=== PATIENT | male | born 1930 | race Caucasian/White ===

== ENCOUNTER 2016-07-23 14:07 | Inpatient (IN) | payer MEDICARE, BC ==
[~2016-07-23] VITALS: Ht 180.3 cm; Wt 81.4 kg
[~2016-07-23 14:07] MED LIST: APIX5 PO; AVOD0.5C PO; CEPH500C3 PO; CETI10 PO; LEXA10TA PO; METO50TA PO; PRIL40CA PO; TAMS0.4C67 PO; TYLE3 PO
[2016-07-23 14:10] VITALS: BP 112/62; PULSE 122; RESP 17; TEMP 97.7; O2SAT 94
[2016-07-23 14:54] VITALS: BP 124/73; PULSE 121; RESP 18; O2SAT 99
--- NOTE | 2016-07-23 15:18 | PD ---
HPI Chief Complaint: Cardiac Complaint Time Seen by Provider: 15:13 Travel History International Travel<30 days: No Contact w/Intl Traveler<30days: No Traveled to known affect area: No History of Present Illness HPI 85-year-old male that presents to the ED for evaluation of abnormal EKG. Per patient he went to see his doctor Dr. Aguilar the packer dried beef for evaluation of abnormal EKG. Patient has a history of atrial flutter and has a pacemaker. Patient apparently for the past 3 weeks has been having shortness of breath and weakness. Weakness with exertion. Denies any chest pain. No dizziness. No lightheadedness. Per patient he went to his office today and he did an EKG that showed atrial follow with a heart rate in the 120s. Patient also had interrogation of his pacemaker which show atrial flutter with RVR in the 120s. He was told to come here immediately. Patient already takes in liquids. Patient denies any other symptoms other than generalized weakness. Per patient she's had a cough/allergy for the past 2 weeks for which she takes Zyrtec but nothing else. He denies any bowel movement or urinary issue. He denies any fevers with this to have some chills and sweats. Patient states that he has congestion and runny nose. He denies any other medical problem at this time. PFSH Past Medical History Hx Anticoagulant Therapy: Yes Arthritis: Yes Heart Rhythm Problems: Yes (PACEMAKER) Cancer: Yes (ESOPHAGUS AND COLON) Cardiovascular Problems: Yes Chemotherapy: Yes Chest Pain: Yes Congestive Heart Failure: No Diminished Hearing: Yes ([place]) Endocrine: No Gastrointestinal Disorders: No GERD: No Genitourinary: No Hiatal Hernia: No Hypertension: Yes Immune Disorder: No Implanted Vascular Access Dvce: Yes Musculoskeletal: Yes Neurologic: No Psychiatric: No Respiratory: No Ulcer: No Past Surgical History Abdominal Surgery: Yes (CANCER ESOPHAGUS) Appendectomy: Yes Cardiac Surgery: Yes (PACEMAKER) Cholecystectomy: Yes Ear Surgery: No Endocrine Surgery: No Eye Surgery: No Genitourinary Surgery: No Oral Surgery: No Pacemaker: Yes ([facility] [place]) Thoracic Surgery: No Tonsillectomy: Yes Other Surgery: Yes (ESOPHAGUS REMOVED AND A PORTION OF THE COLON REMOVED) Social History Alcohol Use: No Tobacco Use: No (FORMER) Substance Use: No Allergies-Medications (Allergen,Severity, Reaction): Coded Allergies: No Known Allergies (Verified , 04/04/15) Reported Meds & Prescriptions Reported Meds & Active Scripts Active Reported Dutasteride 0.5 Mg Cap 0.5 Mg PO DAILY Zyrtec Allergy (Cetirizine HCl) 10 Mg Tab 10 Mg PO DAILY Eliquis (Apixaban) 5 Mg Tab 5 Mg PO BID Metoprolol Tartrate 25 Mg Tab 25 Mg PO BID Lexapro (Escitalopram Oxalate) 10 Mg Tab 10 Mg PO HS Omeprazole 40 Mg Cap 40 Mg PO DAILY Tamsulosin (Tamsulosin HCl) 0.4 Mg Cap 0.4 Mg PO BID Review of Systems Except as stated in HPI: all other systems reviewed are Neg Physical Exam Narrative GENERAL: SKIN: Warm and dry. HEAD: Atraumatic. Normocephalic. EYES: Pupils equal and round 4 mm reactive to light and accommodation. No scleral icterus. No injection or drainage. ENT: No nasal bleeding or discharge. Mucous membranes pink and moist. Tongue is midline. No uvula deviation. NECK: Trachea midline. No JVD. CARDIOVASCULAR: Tachycardic rate and rhythm. Irregular. No murmurs S3 or S4. RESPIRATORY: No accessory muscle use. Clear to auscultation. Breath sounds equal bilaterally. GASTROINTESTINAL: Abdomen soft, non-tender, nondistended. Hepatic and splenic margins not palpable. MUSCULOSKELETAL: Extremities without clubbing, cyanosis, or edema. No obvious deformities. Full range of motion of the upper and lower extremities bilaterally. 2+ pulses bilaterally. NEUROLOGICAL: Awake and alert. No obvious cranial nerve deficits. Motor grossly within normal limits. Five out of 5 muscle strength in the arms and legs. Normal speech. PSYCHIATRIC: Appropriate mood and affect; insight and judgment normal. Data Data Last Documented VS Vital Signs Date Time Temp Pulse Resp B/P Pulse Ox O2 Delivery O2 Flow Rate FiO2 07/23/16 14:54 121 18 124/73 99 Room Air 07/23/16 14:10 97.7 Orders Electrocardiogram (07/23/16 14:23) Complete Blood Count With Diff (07/23/16 14:23) Basic Metabolic Panel (Bmp) (07/23/16 14:23) Ckmb (Isoenzyme) Profile (07/23/16 14:23) Troponin I (07/23/16 14:23) Chest, Single Ap (07/23/16 14:23) Iv Access Insert/Monitor (07/23/16 14:58) Vital Signs (Adult) Q15MX4,Q4H (07/23/16 15:19) ^ Primary Care Md / Telemetry (07/23/16 15:19) Diltiazem Inj (Cardizem Inj) (07/23/16 15:30) ^ Primary Care Md / Telemetry (07/23/16 15:27) Cardiac Rhythm MERNA.Q8H (07/23/16 15:27) ^ Notify Dr: Other (07/23/16 15:27) Diltiazem Inj (Cardizem Inj) (07/23/16 15:30) Prothrombin Time / Inr (Pt) (07/23/16 16:52) Act Partial Throm Time (Ptt) (07/23/16 16:52) Admit Order (Ed Use Only) (07/23/16 17:20) Electrocardiogram (07/23/16 ) Labs Laboratory Tests Test 07/23/16 15:13 White Blood Count 6.0 TH/MM3 Red Blood Count 4.36 MIL/MM3 Hemoglobin 13.1 GM/DL Hematocrit 39.7 % Mean Corpuscular Volume 91.0 FL Mean Corpuscular Hemoglobin 29.9 PG Mean Corpuscular Hemoglobin 32.9 % Concent Red Cell Distribution Width 13.5 % Platelet Count 142 TH/MM3 Mean Platelet Volume 10.9 FL Neutrophils (%) (Auto) 68.5 % Lymphocytes (%) (Auto) 17.8 % Monocytes (%) (Auto) 9.7 % Eosinophils (%) (Auto) 3.4 % Basophils (%) (Auto) 0.6 % Neutrophils # (Auto) 4.1 TH/MM3 Lymphocytes # (Auto) 1.1 TH/MM3 Monocytes # (Auto) 0.6 TH/MM3 Eosinophils # (Auto) 0.2 TH/MM3 Basophils # (Auto) 0.0 TH/MM3 CBC Comment DIFF FINAL Differential Comment Sodium Level 139 MEQ/L Potassium Level 4.0 MEQ/L Chloride Level 107 MEQ/L Carbon Dioxide Level 25.0 MEQ/L Anion Gap 7 MEQ/L Blood Urea Nitrogen 14 MG/DL Creatinine 1.64 MG/DL Estimat Glomerular Filtration 40 ML/MIN Rate Random Glucose 95 MG/DL Calcium Level 8.3 MG/DL Total Creatine Kinase 85 U/L Troponin I LESS THAN 0.02 NG/ML MDM Medical Decision Making Medical Screen Exam Complete: Yes Emergency Medical Condition: Yes Medical Record Reviewed: Yes Interpretation(s) EKG shows atrial flutter with narrow complex tachycardia. read by me and attending. CBC & BMP Diagram 07/23/16 15:13 troponin and CKMB negative Last Impressions Chest X-Ray 07/23/16 1423 Signed Impressions: Service Date/Time: July 14:28 - CONCLUSION: 1. Interval development of a 3.7 x 2.2 cm soft tissue density laterally in the right perihilar distribution. Findings are nonspecific and could represent a mass lesion or fluid in the fissure. CT of the chest could be performed for further characterization. 2. Interval development of some pleural thickening laterally in the right base and some diaphragmatic calcifications also in the right hemithorax. Cong Pressley MD Differential Diagnosis Atrial flutter versus edger fibrillation versus palpitations versus generalized weakness versus COPD versus ACS Narrative Course 85-year-old male that presents to the ED for evaluation of atrial flutter. Patient was properly examined and was found to have signs and symptoms consistent what appears to be atrial flutter with RVR. EKG here showed the same. Patient comes here with paperwork from Dr. Claros's office with score low grade the story. Dr. Claros wants us to call him back. A call was placed to him. Labs and imaging ordered. Case was discussed with Dr Claros and recommends admission to medicine and he will assess to whether do medical management or surgery. Labs and imaging were essentially unremarkable other than for A. fib as well as possible mass to the right lung. Patient's creatinine is too high to do CT with contrast. [facility] Case discussed with Dr Trent who agrees to admission. Diagnosis Primary Impression: Atrial flutter with rapid ventricular response Admitting Information Admitting Physician Requests: Observation Dany Rojas Jul 23, 2016 15:18
[2016-07-23] MEDS ORDERED: DUTA1CAP2 PO (15:24)
[2016-07-23] MEDS ORDERED: CETI1TAB39 PO (15:24)
[2016-07-23] MEDS ORDERED: METO25TA3 PO (15:24)
[2016-07-23] MEDS ORDERED: TAMS0.4C4 PO (15:24)
[2016-07-23] MEDS ORDERED: APIX5TAB PO (15:24)
[2016-07-23] MEDS ORDERED: OMEP40CA2 PO (15:24)
[2016-07-23] MEDS ORDERED: LEXA10TA PO (15:24)
--- NOTE | 2016-07-23 15:24 | RADRPT ---
EXAM DATE/TIME: 07/23/2016 14:28 [facility] COMPARISON: CHEST SINGLE AP, March 10, 2015, 17:03. INDICATIONS : Patient feels very weak with elevated heart rate. MEDICAL HISTORY : Hypertension. SURGICAL HISTORY : Pacemaker. Cholecystectomy. ENCOUNTER: Initial ACUITY: 1 day PAIN SCORE: 0/10 LOCATION: Bilateral chest FINDINGS: A single view of the chest demonstrates an oblong soft tissue density laterally in the right perihila r distribution measuring 3.7 x 2.2 cm in diameter which was not present previously. There is also roxie e pleural thickening laterally in the right hemithorax with diaphragmatic base calcifications also on the right. Left lung is grossly clear but partially obscured by the pacer control unit. Pacer wires are intact. Heart size is borderline normal compensated. Osseous structures are intact. CONCLUSION: 1. Interval development of a 3.7 x 2.2 cm soft tissue density laterally in the right perihilar distri bution. Findings are nonspecific and could represent a mass lesion or fluid in the fissure. CT of the chest could be performed for further characterization. 2. Interval development of some pleural thickening laterally in the right base and some diaphragmatic calcifications also in the right hemithorax. Cong Preslsey MD on July 23, 2016 at 15:18 Board Certified Radiologist. This report was verified electronically.
[2016-07-23] MEDS ORDERED: DILTIAZEM HCL 25 MG/5 ML VIAL IVP ONE (15:30)
[2016-07-23] MEDS ORDERED: DILTIAZEM INJ 125 MG in SODIUM CHLORIDE 0.9% INJ 100 ML IV SCH ×2 (15:30→17:45)
[2016-07-23 15:46] LABS: AUTOMATED NEUTROPHIL # 4.1 TH/MM3 (1.8-7.7); BASOPHIL % 0.6 % (0.0-2.0); EOSINOPHIL # 0.2 TH/MM3 (0-0.4); EOSINOPHIL % 3.4 % (0.0-4.0); HEMATOCRIT 39.7 % (39.0-51.0); HEMO FLAGS DIFF FINAL; LYMPH % 17.8 % (9.0-44.0); LYMPHOCYTE # 1.1 TH/MM3 (1.0-4.8); MEAN CORPUSCULAR HEMOGLOBIN 29.9 PG (27.0-34.0); MEAN CORPUSCULAR HGB CONC 32.9 % (32.0-36.0); MONO % 9.7 % (0.0-8.0); NEUT % 68.5 % (16.0-70.0); PLATELET COUNT 142 TH/MM3 (150-450); RED BLOOD COUNT 4.36 MIL/MM3 (4.50-5.90); RED CELL DISTRIBUTION WIDTH 13.5 % (11.6-17.2)
[2016-07-23 17:03] LABS: ANION GAP 7 MEQ/L (5-15); BLOOD UREA NITROGEN 14 MG/DL (7-18); CHLORIDE 107 MEQ/L (98-107); GLOMERULAR FILTRATION RATE 40 ML/MIN (>89); SODIUM (NA) 139 MEQ/L (136-145)
[2016-07-23 17:10] LABS: CREATINE KINASE 85 U/L (39-308)
[2016-07-23 17:38] VITALS: BP 104/67; PULSE 95; RESP 18; O2SAT 100
--- NOTE | 2016-07-23 17:47 | HHI.PR ---
Objective Objective Results - Vital Signs Date Time Temp Pulse Resp B/P Pulse Ox O2 Delivery O2 Flow Rate FiO2 07/23/16 17:38 95 18 104/67 100 Room Air 07/23/16 14:54 121 18 124/73 99 Room Air 07/23/16 14:10 97.7 122 17 112/62 94 Result Diagram: 07/23/16 1513 07/23/16 1513 Other Results Laboratory Tests Test 07/23/16 15:13 White Blood Count 6.0 Red Blood Count 4.36 Hemoglobin 13.1 Hematocrit 39.7 Mean Corpuscular Volume 91.0 Mean Corpuscular Hemoglobin 29.9 Mean Corpuscular Hemoglobin 32.9 Concent Red Cell Distribution Width 13.5 Platelet Count 142 Mean Platelet Volume 10.9 Neutrophils (%) (Auto) 68.5 Lymphocytes (%) (Auto) 17.8 Monocytes (%) (Auto) 9.7 Eosinophils (%) (Auto) 3.4 Basophils (%) (Auto) 0.6 Neutrophils # (Auto) 4.1 Lymphocytes # (Auto) 1.1 Monocytes # (Auto) 0.6 Eosinophils # (Auto) 0.2 Basophils # (Auto) 0.0 CBC Comment DIFF FINAL Differential Comment Sodium Level 139 Potassium Level 4.0 Chloride Level 107 Carbon Dioxide Level 25.0 Anion Gap 7 Blood Urea Nitrogen 14 Creatinine 1.64 Estimat Glomerular Filtration 40 Rate Random Glucose 95 Calcium Level 8.3 Total Creatine Kinase 85 Troponin I LESS THAN 0.02 Physical Exam Physical Exam PT IS SEEN & EXAMINED D/W PT & HIS & DAUGHTER AT BEDSIDE D/W SEE JOVEL a FIB W RVR DIZZINESS/ AGUILAR LUNG MASS SEE ORDERS SEE H&P BY SEE WEBSTER F/U Brenda Trent MD Jul 23, 2016 17:47
[2016-07-23] MEDS: SODIUM CHLOR 0.9% 1000 ML INJ 1,000 ML IV SCH ×2 (18:15→20:45)
--- NOTE | 2016-07-23 18:24 | HHI.HP ---
[facility] Aron Mccray MD Admission Diagnosis atrial flutter with RVR Diagnoses: (1) Atrial flutter with rapid ventricular response Diagnosis: Principal (2) Dizziness Diagnosis: Principal (3) Lung mass Diagnosis: Secondary (4) Syncope and collapse Diagnosis: Principal (5) Shortness of breath Diagnosis: Principal Chief Complaint: generalized weakness and dizziness X 3 weeks. Travel History International Travel<30 Days: No Contact w/Intl Traveler <30 Da: No Traveled to Known Affected Are: No History of Present Illness This is an 85-year-old white male who came into the emergency room from his cardiology office with an abnormal EKG. The past 3 weeks patient has had symptoms of shortness of breath and weakness especially with activity or exertion. Patient denies any chest pain, but does have bouts of dizziness off and on. Patient currently has a pacemaker and has had episodes of atrial fib in the past. He should also had his pacemaker checked which showed slow atrial flutter heart rate in the 120s. She was told to come to the emergency room for further evaluation. Patient denies any fever, no cough, no chest pain, no constipation. She does have bouts of diarrhea which appears to be chronic according to his . Most of the patient's history is given per the and daughter due to the patient's hard of hearing. Patient is engaged with the conversation with his eye contact. She does note seasonal allergies and has been taking Zyrtec for the past few weeks, but other than that no new meds. Review of Systems ROS Limitations: Hearing Impaired, Other (Severe [place]. Limited ROS) Past Family Social History Past Medical History Heart disease Cancer of the esophagus Colon cancer history of anticoagulant therapy Atrial fibrillation Hard of hearing Hypertension Past Surgical History Pacemaker insertion abdominal surgery appendectomy Cholecystectomy Esophagus removed and a portion of the colon removed Reported Medications See med reconcilation sheet. Active Medications Apixaban (Eliquis) 5 mg BID PO; Start 07/23/16 at 21:00; Status UNV Cetirizine HCl (ZyrTEC) 10 mg DAILY PO; Start 07/24/16 at 09:00; Status UNV Diltiazem HCl 125 mg/Sodium Chloride 125 ml @ 0 mls/hr TITRATE IV; Start at 17:45; Status UNV Diltiazem HCl 15 mg 15 mg ONCE ONCE IVP Last administered on 07/23/16 15:31; Admin Dose 15 MG; Start 07/23/16 at 15:30; Stop 07/23/16 at 15:36; Status DC Diltiazem HCl/ Sodium Chloride (Cardizem Inj/NS Inj) 125 ml @ 0 mls/hr TITRATE IV Last administered on 07/23/16 17:37; Admin Dose 0 MLS/HR; Start 07/23/16 at 15:30 Escitalopram Oxalate (Lexapro) 10 mg HS PO; Start 07/23/16 at 21:00; Status UNV Metoprolol Tartrate (Lopressor) 25 mg BID PO; Start 07/23/16 at 21:00; Status UNV Non-Formulary Medication 0.5 mg 0.5 mg DAILY PO; Start 07/24/16 at 09:00; Status UNV Pantoprazole Sodium (Protonix) 40 mg DAILY PO; Start 07/24/16 at 09:00; Status UNV Sodium Chloride (NS 1000 ml Inj) 1,000 ml @ 100 mls/hr Q10H IV; Start 07/23/16 at 17:45; Status UNV Tamsulosin HCl (Flomax) 0.4 mg BID PO; Start 07/23/16 at 21:00; Status UNV Allergies: Coded Allergies: No Known Allergies (Verified , 04/04/15) Active Ordered Medications Active Medications Apixaban (Eliquis) 5 mg BID PO; Start 07/23/16 at 21:00; Status UNV Cetirizine HCl (ZyrTEC) 10 mg DAILY PO; Start 07/24/16 at 09:00; Status UNV Diltiazem HCl 125 mg/Sodium Chloride 125 ml @ 0 mls/hr TITRATE IV; Start at 17:45; Status UNV Diltiazem HCl 15 mg 15 mg ONCE ONCE IVP Last administered on 07/23/16 15:31; Admin Dose 15 MG; Start 07/23/16 at 15:30; Stop 07/23/16 at 15:36; Status DC Diltiazem HCl/ Sodium Chloride (Cardizem Inj/NS Inj) 125 ml @ 0 mls/hr TITRATE IV Last administered on 07/23/16 17:37; Admin Dose 0 MLS/HR; Start 07/23/16 at 15:30 Escitalopram Oxalate (Lexapro) 10 mg HS PO; Start 07/23/16 at 21:00; Status UNV Metoprolol Tartrate (Lopressor) 25 mg BID PO; Start 07/23/16 at 21:00; Status UNV Non-Formulary Medication 0.5 mg 0.5 mg DAILY PO; Start 07/24/16 at 09:00; Status UNV Pantoprazole Sodium (Protonix) 40 mg DAILY PO; Start 07/24/16 at 09:00; Status UNV Sodium Chloride (NS 1000 ml Inj) 1,000 ml @ 100 mls/hr Q10H IV; Start 07/23/16 at 17:45; Status UNV Tamsulosin HCl (Flomax) 0.4 mg BID PO; Start 07/23/16 at 21:00; Status UNV Family History Mother from pneumonia father from dementia and its complications Social History Patient is currently lives at home with his . Daughter is here at the hospital and assist as warranted Tobacco use greater than 60 years ago No no alcohol use and no illicit drugs Physical Exam Vital Signs Vital Signs Date Time Temp Pulse Resp B/P Pulse Ox O2 Delivery O2 Flow Rate FiO2 07/23/16 17:38 95 18 104/67 100 Room Air 07/23/16 14:54 121 18 124/73 99 Room Air 07/23/16 14:10 97.7 122 17 112/62 94 Physical Exam GENERAL: This is a well-nourished, well-developed patient, in no apparent distress at rest. SKIN: No rashes, ecchymoses or lesions. Cool and dry. HEAD: Atraumatic. Normocephalic. No temporal or scalp tenderness. EYES: Pupils 2mm, equal round and reactive. Extraocular motions intact. No scleral icterus. No injection or drainage. ENT: Nose without bleeding, purulent drainage or septal hematoma. Throat without erythema, tonsillar hypertrophy or exudate. Uvula midline. Airway patent. NECK: Trachea midline. No JVD or lymphadenopathy. Supple, nontender. CARDIOVASCULAR: Regular rate and rhythm without murmurs, gallops, or rubs. Heart sounds distant. No pedal edema RESPIRATORY: Clear to auscultation. Breath sounds equal bilaterally. No wheezes , rales, or rhonchi. GASTROINTESTINAL: Abdomen soft, non-tender, nondistended. No hepato-splenomegaly , or palpable masses. No guarding. MUSCULOSKELETAL: Extremities without clubbing, cyanosis, or edema. No joint tenderness, effusion, or edema noted. No calf tenderness. NEUROLOGICAL: Awake and alert. Motor and sensory grossly within normal limits. Four out of 5 muscle strength in all muscle groups. Normal speech. Laboratory Laboratory Tests Test 07/23/16 15:13 White Blood Count 6.0 Red Blood Count 4.36 Hemoglobin 13.1 Hematocrit 39.7 Mean Corpuscular Volume 91.0 Mean Corpuscular Hemoglobin 29.9 Mean Corpuscular Hemoglobin 32.9 Concent Red Cell Distribution Width 13.5 Platelet Count 142 Mean Platelet Volume 10.9 Neutrophils (%) (Auto) 68.5 Lymphocytes (%) (Auto) 17.8 Monocytes (%) (Auto) 9.7 Eosinophils (%) (Auto) 3.4 Basophils (%) (Auto) 0.6 Neutrophils # (Auto) 4.1 Lymphocytes # (Auto) 1.1 Monocytes # (Auto) 0.6 Eosinophils # (Auto) 0.2 Basophils # (Auto) 0.0 CBC Comment DIFF FINAL Differential Comment Sodium Level 139 Potassium Level 4.0 Chloride Level 107 Carbon Dioxide Level 25.0 Anion Gap 7 Blood Urea Nitrogen 14 Creatinine 1.64 Estimat Glomerular Filtration 40 Rate Random Glucose 95 Calcium Level 8.3 Total Creatine Kinase 85 Troponin I LESS THAN 0.02 Result Diagram: 07/23/16 1513 07/23/16 1513 Imaging Last Impressions Chest X-Ray 07/23/16 1423 Signed Impressions: Service Date/Time: July 14:28 - CONCLUSION: 1. Interval development of a 3.7 x 2.2 cm soft tissue density laterally in the right perihilar distribution. Findings are nonspecific and could represent a mass lesion or fluid in the fissure. CT of the chest could be performed for further characterization. 2. Interval development of some pleural thickening laterally in the right base and some diaphragmatic calcifications also in the right hemithorax. Cong Pressley MD Septic Shock Reassessment Heart: Regular rate and rhythm Lungs: Clear Skin: Warm, Dry Peripheral Pulses: Bounding Right Radial Bounding Left Radial Bounding Right Popliteal Bounding Left Popliteal Bounding Right Dorsalis Pedis Bounding Left Dorsalis Pedis Bounding Right Posterior Tibial Bounding Left Posterior Tibial Capillary Refill: Brisk Assessment and Plan Problem List: (1) Atrial flutter with rapid ventricular response (2) Syncope and collapse (3) Shortness of breath (4) Lung mass (5) Dizziness Plan: Patient was given IV Cardizem and placed on a Cardizem drip to maintain blood pressure. Patient has threat monitoring analyst for observation of heart rate. Monitor vital signs which include blood pressure, fever, respiratory rate. DVT prophylaxis, patient is on Elaquis PUD prophylaxis with Protonix Monitor activities for safety precautions. Patient used to have someone with him or call for nurse before being up out of the bed. Reconcile medications Labs as warranted CT chest for follow-up of possible lung mass. Monitor any signs of symptoms of chest pain, shortness of breath, or dizziness. Document in chart and call for any issues Patient is Full code, full aggressive care per his and requests. Discussed With: Nurse, Family ( and daughter), Other (Dr. Trent, pt seen on his behalf) Rita Ross Jul 23, 2016 18:24
[2016-07-23 18:42] LABS: APTT (PATIENT) 29.4 SEC (24.3-30.1); INTERNATIONAL NORMALIZED RATIO 1.1 RATIO; PROTHROMBIN TIME - PATIENT 12.5 SEC (9.8-11.6)
[2016-07-23 20:00] VITALS: BP 103/62; PULSE 68; PULSE 69; RESP 18; TEMP 97.4; O2SAT 93
[2016-07-23] MEDS: METOPROLOL TARTRATE 25 MG TAB PO SCH (20:45)
[2016-07-23] MEDS: APIXABAN 5 MG TABLET PO SCH (20:45)
[2016-07-23] MEDS: ESCITALOPRAM OXALATE 10 MG TAB PO SCH (20:45)
[2016-07-23] MEDS: TAMSULOSIN HCL 0.4 MG CAP PO SCH (20:45)
[2016-07-23] MEDS ORDERED: CHLORHEXIDINE GLUCONATE 2 % 1 PACK (2 CLOTHS)(extra cloths) TOP PRN (21:00)
--- NOTE | 2016-07-23 21:27 | RADRPT ---
EXAM DATE/TIME: 07/23/2016 20:19 [facility] COMPARISON: CHEST SINGLE AP, July 23, 2016, 14:28. CT ABDOMEN & PELVIS W CONTRAST, May 06, 2011, 0:23. INDICATIONS : Lung mass seen on chest x-ray. RADIATION DOSE: 9.53 CTDIvol (mGy) MEDICAL HISTORY : Carcinoma, esophageal. SURGICAL HISTORY : Tonsillectomy. Pacemaker. ENCOUNTER: Initial ACUITY: 1 day PAIN SCALE: 0/10 LOCATION: chest TECHNIQUE: Volumetric scanning of the chest was performed. Using automated exposure control and adjustment of t he mA and/or kV according to patient size, radiation dose was kept as low as reasonably achievable to obtain optimal diagnostic quality images. FINDINGS: The opacity seen on today's chest x-ray is related to small amount of fluid in and lateral to the rig ht major fissure. A trace amount of pleural fluid is also seen on the left. There is no concerning pu lmonary mass. Multiple mediastinal lymph nodes measuring up to 1 cm in greatest short axis dimension are seen, especially the AP window region. Nothing clearly pathologic by size criteria. Scattered calcified granulomas are again seen. There is patchy calcified pleural plaquing on both josefa es, including the diaphragmatic surfaces. Patient has had previous esophagectomy and gastric pullup. There is debris within the intrathoracic p ortion of the stomach. No perceptible mass. Study only partly includes the upper abdomen. There are small stones of the upper poles of both kidne ys. What I can see of the renal stones appear to be nonobstructing. A 2.5 cm cyst is partly seen of t he left upper pole. CONCLUSION: 1. Small right and tiny left pleural effusions. Much of the right pleural effusion is loculated in th e major fissure which accounts for the opacity on today's chest x-ray. No concerning mass is demonstr ated. 2. Shotty mediastinal adenopathy, nonspecific but most likely benign. 3. Previous esophagectomy with gastric pullup without evidence of an acute complication or recurrence . 4. Coronary artery calcification. 5. Tiny stones partly seen of both kidneys and a left renal cyst. Home Alanis MD on July 23, 2016 at 21:21 Board Certified Radiologist. This report was verified electronically.
[2016-07-23 22:00] VITALS: PULSE 67
[2016-07-24] VITALS (12 sets, daily range): BP systolic 89–109; BP diastolic 60–71; PULSE 66–72; RESP 14–23; TEMP 97.2–98.6; O2SAT 96
[2016-07-24] MEDS: CHLORHEXIDINE GLUCONATE 2 % 1 PACK (2 CLOTHS)(taper/protocol) TOP SCH (03:24)
[2016-07-24 05:57] LABS: HEMATOCRIT 34.8 % (39.0-51.0); MEAN CELL VOLUME 89.2 FL (80.0-100.0); MEAN CORPUSCULAR HEMOGLOBIN 29.6 PG (27.0-34.0); MEAN CORPUSCULAR HGB CONC 33.2 % (32.0-36.0); PLATELET COUNT 133 TH/MM3 (150-450); RED CELL DISTRIBUTION WIDTH 13.6 % (11.6-17.2); REVIEW FLAG FINAL; WHITE BLOOD COUNT 4.1 TH/MM3 (4.0-11.0)
[2016-07-24 06:23] LABS: BICARBONATE 27.5 MEQ/L (21.0-32.0); POTASSIUM 4.5 MEQ/L (3.5-5.1)
[2016-07-24] MEDS: CETIRIZINE HCL 10 MG TAB PO SCH (08:59)
[2016-07-24] MEDS: FINASTERIDE 5 MG TAB PO SCH (08:59)
[2016-07-24] MEDS: APIXABAN 5 MG TABLET PO SCH ×2 (08:59→20:53)
[2016-07-24] MEDS: METOPROLOL TARTRATE 25 MG TAB PO SCH (08:59)
[2016-07-24] MEDS: TAMSULOSIN HCL 0.4 MG CAP PO SCH ×2 (08:59→20:53)
[2016-07-24] MEDS: PANTOPRAZOLE SOD 40 MG DELAYED RELEASE TAB PO SCH (08:59)
--- NOTE | 2016-07-24 14:11 | HHI.PR ---
Subjective Remarks No chest pain No SOB at rest. No dizziness No Headache Appetite good (Rita Ross) Objective Objective Results - Vital Signs Date Time Temp Pulse Resp B/P Pulse Ox O2 Delivery O2 Flow Rate FiO2 07/24/16 12:00 97.2 68 14 89/71 96 07/24/16 12:00 68 07/24/16 10:00 68 07/24/16 08:00 66 07/24/16 08:00 98.6 68 14 104/61 96 07/24/16 06:00 72 07/24/16 04:00 97.7 67 14 109/68 96 07/24/16 04:00 67 07/24/16 02:00 68 07/24/16 00:00 97.7 68 17 91/60 96 07/24/16 00:00 68 07/23/16 22:00 67 07/23/16 20:00 69 07/23/16 20:00 97.4 68 18 103/62 93 07/23/16 17:38 95 18 104/67 100 Room Air 07/23/16 14:54 121 18 124/73 99 Room Air 07/23/16 14:10 97.7 122 17 112/62 94 I/O 07/23/16 07/23/16 07/23/16 07/24/16 07/24/16 07/24/16 07:00 15:00 23:00 07:00 15:00 23:00 Intake Total 120 ml 900 ml Output Total 250 ml Balance 120 ml 650 ml Intake Oral 120 ml IV Total 900 ml Output Urine Total 250 ml # Voids 1 # Bowel Movements 1 (Rita Ross) Result Diagram: 07/24/16 0410 07/24/16 0410 Medications and IVs Active Medications Apixaban (Eliquis) 5 mg BID PO Last administered on 07/24/16 08:59; Admin Dose 5 MG; Start 07/23/16 at 21:00 Cetirizine HCl (ZyrTEC) 10 mg DAILY PO Last administered on 07/24/16 08:59; Admin Dose 10 MG; Start 07/24/16 at 09:00 Chlorhexidine Gluconate (Chlorhexidine 2% Cloth) 3 pack DAILY@04 TOP Last administered on 07/24/16 03:24; Admin Dose 3 PACK; Start 07/24/16 at 04:00; Stop 07/28/16 at 04:01 Chlorhexidine Gluconate (Chlorhexidine 2% Cloth) 3 pack UNSCH PRN TOP; Start at 21:00; Stop 07/28/16 at 20:50 Diltiazem HCl 125 mg/Sodium Chloride 125 ml @ 0 mls/hr TITRATE IV; Start at 17:45 Diltiazem HCl 15 mg 15 mg ONCE ONCE IVP Last administered on 07/23/16 15:31; Admin Dose 15 MG; Start 07/23/16 at 15:30; Stop 07/23/16 at 15:36; Status DC Diltiazem HCl/ Sodium Chloride (Cardizem Inj/NS Inj) 125 ml @ 0 mls/hr TITRATE IV Last administered on 07/23/16 17:37; Admin Dose 0 MLS/HR; Start 07/23/16 at 15:30; Stop 07/23/16 at 18:09; Status DC Escitalopram Oxalate (Lexapro) 10 mg HS PO Last administered on 07/23/16 20:45 ; Admin Dose 10 MG; Start 07/23/16 at 21:00 Finasteride 5 mg 5 mg DAILY PO Last administered on 07/24/16 08:59; Admin Dose 5 MG; Start 07/24/16 at 09:00 Metoprolol Tartrate (Lopressor) 25 mg BID PO Last administered on 07/24/16 08: 59; Admin Dose 25 MG; Start 07/23/16 at 21:00 Miscellaneous Information Patient in critical care unit? Ass... Q361D XX Last administered on 07/23/16 21:00; Admin Dose 1; Start 07/23/16 at 21:00 Pantoprazole Sodium (Protonix) 40 mg DAILY PO Last administered on 07/24/16 08: 59; Admin Dose 40 MG; Start 07/24/16 at 09:00 Sodium Chloride (NS 1000 ml Inj) 1,000 ml @ 100 mls/hr Q10H IV Last administered on 07/23/16 20:45; Admin Dose 100 MLS/HR; Start 07/23/16 at 18:15 Tamsulosin HCl (Flomax) 0.4 mg BID PO Last administered on 07/24/16t 08:59; Admin Dose 0.4 MG; Start 07/23/16 at 21:00 (Rita Ross) ROS General: Other (10 point ROS done. Negative assessment/unremarkable) (Rita Ross) Physical Exam Physical Exam PHYSICAL EXAMINATION GENERAL: This is a well-developed, slim male who appears to be in no acute distress. He is alert and awake, sitting up in bed. HEAD: Normocephalic without any lesion or mass noted. Facial features appear symmetric. OROPHARYNGEAL: Oropharynx without erythema or edema. NECK: Supple. No nuchal rigidity or lymphadenopathy. Trachea midline without deviation. CARDIAC: irregular rhythm, rate on the 60s with paced beats noted 70% of the time, S1 and S2 are heard. Murmur none; no gallops or rubs. LUNGS: Clear to auscultation bilaterally. No wheeze,rhonchi or rales noted.. No use of accessory muscles on inspiration or expiration. ABDOMEN: flat, Soft, nontender, no organomegaly or masses. Bowel sounds are heard in all four quadrants. No rebound. No guarding. EXTREMITIES: No pedal or central edema. Pulses equal bilateral. No cyanosis. NEUROLOGICAL: Patient mood and affect appropriate. No focal deficit except for [place] SKIN:Warm and moist, dry Objective Remarks Ebonie got my appetite back todat. I feel better. (Rita Ross) A/P Diagnosis: (1) Atrial flutter with rapid ventricular response (2) Syncope and collapse (3) Shortness of breath (4) Lung mass (5) Dizziness Plan: Cardizem drip controlling HR in the 60s with 70% pacing. Blood pressure borderline low systolic, but asymptomatic. Patient has traffic monitor specialist for observation of heart rate. Plan to start Cardizem 30mg PO every 6 hrs, and D/C Cardizem drip. Cardiology consult in place. Monitor vital signs which include blood pressure, fever, respiratory rate. DVT prophylaxis, patient is on Elaquis PUD prophylaxis with Protonix Monitor activities for safety precautions. On bedrest for now until IV Cardizem off. medications monitored for any needs. Mg level 2.2. Information given to family per daughter request. Labs as warranted CT chest for follow-up of possible lung mass. CT done. Last Impressions Chest X-Ray 07/23/16 1423 Signed Impressions: Service Date/Time: July 14:28 - CONCLUSION: 1. Interval development of a 3.7 x 2.2 cm soft tissue density laterally in the right perihilar distribution. Findings are nonspecific and could represent a mass lesion or fluid in the fissure. CT of the chest could be performed for further characterization. 2. Interval development of some pleural thickening laterally in the right base and some diaphragmatic calcifications also in the right hemithorax. Cong Pressley MD Chest CT 07/23/16 0000 Signed Impressions: Service Date/Time: July 20:19 - CONCLUSION: 1. Small right and tiny left pleural effusions. Much of the right pleural effusion is loculated in the major fissure which accounts for the opacity on today's chest x-ray. No concerning mass is demonstrated. 2. Shotty mediastinal adenopathy, nonspecific but most likely benign. 3. Previous esophagectomy with gastric pullup without evidence of an acute complication or recurrence. 4. Coronary artery calcification. 5. Tiny stones partly seen of both kidneys and a left renal cyst. Home Alanis MD Monitor any signs of symptoms of chest pain, shortness of breath, or dizziness. Document in chart and call for any issues Patient is Full code, full aggressive care per his and requests. and daughter in room. D/W RN D/W patient, family D/W Dr. Trent Discussed With: Nurse, Family ( and daughter), Other (Dr. Trent, pt seen on his behalf) (Rita Ross) Assessment and Plan pt is seen & examined d/w PT d/w rita daniel w above will f/u (Brenda Trent MD) Rita Ross Jul 24, 2016 14:11 Brenda Trent MD Jul 24, 2016 18:02
[2016-07-24] MEDS: SODIUM CHLOR 0.9% 1000 ML INJ 1,000 ML IV SCH (14:15)
[2016-07-24] MEDS: DILTIAZEM HCL 30 MG TAB PO SCH ×2 (15:42→18:00)
[2016-07-24] MEDS: ESCITALOPRAM OXALATE 10 MG TAB PO SCH (20:53)
--- NOTE | 2016-07-24 22:56 | EKG ---
Date Performed: 07/23/2016 Time Performed: 14:32:06 PTAGE: 85 years EKG: ATRIAL FLUTTER/TACHYCARDIA WITH RAPID VENTRICULAR RESPONSE ST DEVIATION AND MODERATE T-WAVE ABNORMALITY, CONSIDER ANTEROLATERAL ISCHEMIA ABNORMAL ECG PREVIOUS TRACING : 04/05/2015 05.43 DOCTOR: Adelaide Claros Interpretating Date/Time 07/24/2016 22:49:17
[2016-07-25] VITALS (12 sets, daily range): BP systolic 98–134; BP diastolic 61–84; PULSE 66–116; RESP 16–23; TEMP 81–97.8; O2SAT 92–97
[2016-07-25] MEDS: DILTIAZEM HCL 60 MG TAB PO SCH ×4 (00:05→18:11)
[2016-07-25] MEDS: SODIUM CHLOR 0.9% 1000 ML INJ 1,000 ML IV SCH ×3 (01:21→20:56)
[2016-07-25] MEDS: CHLORHEXIDINE GLUCONATE 2 % 1 PACK (2 CLOTHS)(taper/protocol) TOP SCH (04:00)
--- NOTE | 2016-07-25 08:50 | MB ---
cc: PATRICK TREVIÑO M.D. DATE OF CONSULTATION: 07/24/2016 REASON FOR CONSULTATION: Atrial fibrillation, atrial tachycardia with biventricular response. HISTORY OF PRESENT ILLNESS: Mr. Ruiz is a 85-year-old gentleman with history of lung mass. Atrial fibrillation, colon cancer, esophageal cancer [id number], high blood pressure. He has previous pacemaker a defibrillator inserted. He has AV node modification. He has previous history of atrial flutter. He is on anticoagulation. He was seen in my office, He was in atrial flutter, atrial tachyarrhythmia. He was sent to the emergency room. Cardizem was initiated for rate control. The patient condition continued to improve. Also there is a possible infection. Antibiotic was initiated. The chart was reviewed. The patient was evaluated. ALLERGIES None. SOCIAL HISTORY Negative for smoking and drinking. FAMILY HISTORY Noncontributory to the his current medical condition. MEDICATIONS AT HOME 1. Eliquis 1. Zyprexa 2. Cardizem. 3. Metoprolol 4. Protonix. REVIEW OF SYSTEMS Currently the patient refers no chest pain, no chest discomfort, feeling better, No vomiting. No fever. PHYSICAL EXAMINATION: IN GENERAL: Physical exam, alert, fully oriented, in bed, pleasant as usual. VITAL SIGNS: Blood pressure 95/67, pulse 69, respiratory rate 18 LUNGS: Ventilated. CARDIOVASCULAR SYSTEM: S1, S2 regular. ABDOMEN: Soft. No mass. EXTREMITIES: Extremity no edema. RADIOLOGIC: Electrocardiogram V pacing. LABORATORY DATA INR 1.2, potassium 4.5, creatinine 1.42, troponin less than 0.02. Iron 8, hemoglobin 11.6. ASSESSMENT AND RECOMMENDATIONS Mr. Ruiz's condition is stable, he continued to improve. I will discontinue the IV Cardizem. I will start Cardizem p.o. 60 mg q.6 h if tolerated. Then can switch to more long-acting Cardizem. I am going to add also some digoxin. I remember the gentleman has some side effect with amiodarone, that will not be used. If necessary I will use sotalol. At this point this is medical management. I or one of my partners will follow during hospitalization for the weekend. I will see him as an outpatient. If he is stable can be discharged home tomorrow or Wednesday. MD Marianela Lagos 8:06 PM /8:42 AM
--- NOTE | 2016-07-25 08:53 | PD.CARD.PN ---
Subjective Subjective Remarks No chest pain, no shortness of breath Objective Medications Current Medications Medications (Trade) Dose Ordered Sig/Omer Route Start Time Stop Time Status Last Admin (Eliquis) 5 mg BID PO 07/23/16 21:00 07/24/16 20:53 (ZyrTEC) 10 mg DAILY PO 07/24/16 09:00 07/24/16 08:59 (Lexapro) 10 mg HS PO 07/23/16 21:00 07/24/16 20:53 (Flomax) 0.4 mg BID PO 07/23/16 21:00 07/24/16 20:53 Finasteride 5 mg 5 mg DAILY PO 07/24/16 09:00 07/24/16 08:59 Diltiazem HCl 125 mg/Sodium Chloride 125 ml @ 0 mls/hr TITRATE IV 07/23/16 17:45 (NS 1000 ml Inj) 1,000 ml @ 100 mls/hr Q10H IV 07/23/16 18:15 07/25/16 01:21 (Protonix) 40 mg DAILY PO 07/24/16 09:00 07/24/16 08:59 Miscellaneous Information Patient in critical care unit? Ass... Q361D XX 07/23/16 21:00 07/23/16 21:00 (Chlorhexidine 2% Cloth) 3 pack DAILY@04 TOP 07/24/16 04:00 07/28/16 04:01 07/25/16 04:00 (Chlorhexidine 2% Cloth) 3 pack UNSCH PRN TOP 07/23/16 21:00 07/28/16 20:50 (Cardizem) 60 mg Q6HR PO 07/25/16 00:00 07/25/16 05:29 (Lanoxin) 0.125 mg DAILY PO 07/25/16 09:00 Vital Signs / I&O Vital Signs Date Time Temp Pulse Resp B/P Pulse Ox O2 Delivery O2 Flow Rate FiO2 07/25/16 08:00 116 07/25/16 06:00 114 07/25/16 04:00 81.0 81 22 134/65 94 07/25/16 04:00 80 07/25/16 02:00 81 07/25/16 00:00 67 07/25/16 00:00 97.8 106 20 119/68 92 07/24/16 22:00 68 07/24/16 20:00 69 07/24/16 20:00 97.6 69 23 101/62 96 07/24/16 18:00 69 07/24/16 16:00 97.9 69 14 95/67 96 07/24/16 16:00 69 07/24/16 14:00 69 07/24/16 12:00 97.2 68 14 89/71 96 07/24/16 12:00 68 07/24/16 10:00 68 I/O 07/24/16 07/24/16 07/24/16 07/25/16 07/25/16 07/25/16 07:00 15:00 23:00 07:00 15:00 23:00 Intake Total 900 ml 1300 ml 2213 ml 716 ml Output Total 250 ml 30 ml 0 ml 475 ml Balance 650 ml 1270 ml 2213 ml 241 ml Intake Oral 380 ml 458 ml 20 ml IV Total 900 ml 920 ml 1755 ml 696 ml Output Urine Total 250 ml 30 ml 0 ml 475 ml Stool Total 0 ml # Voids 1 1 0 # Bowel Movements 1 1 0 1 Physical Exam GENERAL: NAD SKIN: Warm and dry. HEAD: Atraumatic. Normocephalic. EYES: Pupils equal and round. No scleral icterus. No injection or drainage. ENT: No nasal bleeding or discharge. Mucous membranes pink and moist. NECK: Trachea midline. No JVD. CARDIOVASCULAR: Irregularly irregular RESPIRATORY: No accessory muscle use. Clear to auscultation. Breath sounds equal bilaterally. GASTROINTESTINAL: Abdomen soft, non-tender, nondistended. Hepatic and splenic margins not palpable. MUSCULOSKELETAL: Extremities without clubbing, cyanosis, or edema. No obvious deformities. NEUROLOGICAL: Awake and alert. No obvious cranial nerve deficits. Motor grossly within normal limits. Five out of 5 muscle strength in the arms and legs. Normal speech. PSYCHIATRIC: Appropriate mood and affect; insight and judgment normal. Laboratory Laboratory Tests Test 07/23/16 07/23/16 07/23/16 07/24/16 15:13 18:19 19:36 04:10 White Blood Count 6.0 TH/MM3 4.1 TH/MM3 (4.0-11.0) (4.0-11.0) Red Blood Count 4.36 MIL/MM3 3.90 MIL/MM3 (4.50-5.90) (4.50-5.90) Hemoglobin 13.1 GM/DL 11.6 GM/DL (13.0-17.0) (13.0-17.0) Hematocrit 39.7 % 34.8 % (39.0-51.0) (39.0-51.0) Mean Corpuscular Volume 91.0 FL 89.2 FL (80.0-100.0) (80.0-100.0) Mean Corpuscular Hemoglobin 29.9 PG 29.6 PG (27.0-34.0) (27.0-34.0) Mean Corpuscular Hemoglobin 32.9 % 33.2 % Concent (32.0-36.0) (32.0-36.0) Red Cell Distribution Width 13.5 % 13.6 % (11.6-17.2) (11.6-17.2) Platelet Count 142 TH/MM3 133 TH/MM3 (150-450) (150-450) Mean Platelet Volume 10.9 FL 10.0 FL (7.0-11.0) (7.0-11.0) Neutrophils (%) (Auto) 68.5 % (16.0-70.0) Lymphocytes (%) (Auto) 17.8 % (9.0-44.0) Monocytes (%) (Auto) 9.7 % (0.0-8.0) Eosinophils (%) (Auto) 3.4 % (0.0-4.0) Basophils (%) (Auto) 0.6 % (0.0-2.0) Neutrophils # (Auto) 4.1 TH/MM3 (1.8-7.7) Lymphocytes # (Auto) 1.1 TH/MM3 (1.0-4.8) Monocytes # (Auto) 0.6 TH/MM3 (0-0.9) Eosinophils # (Auto) 0.2 TH/MM3 (0-0.4) Basophils # (Auto) 0.0 TH/MM3 (0-0.2) CBC Comment DIFF FINAL Differential Comment Sodium Level 139 MEQ/L 143 MEQ/L (136-145) (136-145) Potassium Level 4.0 MEQ/L 4.5 MEQ/L (3.5-5.1) (3.5-5.1) Chloride Level 107 MEQ/L 112 MEQ/L (98-107) (98-107) Carbon Dioxide Level 25.0 MEQ/L 27.5 MEQ/L (21.0-32.0) (21.0-32.0) Anion Gap 7 MEQ/L (5-15) 4 MEQ/L (5-15) Blood Urea Nitrogen 14 MG/DL (7-18) 13 MG/DL (7-18) Creatinine 1.64 MG/DL 1.42 MG/DL (0.60-1.30) (0.60-1.30) Estimat Glomerular Filtration 40 ML/MIN (>89) 47 ML/MIN (>89) Rate Random Glucose 95 MG/DL 79 MG/DL (74-106) (74-106) Calcium Level 8.3 MG/DL 8.2 MG/DL (8.5-10.1) (8.5-10.1) Total Creatine Kinase 85 U/L (39-308) Troponin I LESS THAN 0.02 NG/ML (0.02-0.05) Prothrombin Time 12.5 SEC (9.8-11.6) Prothromb Time International 1.1 RATIO Ratio Activated Partial 29.4 SEC Thromboplast Time (24.3-30.1) Nasal Screen MRSA (PCR) NEGATIVE (NEGATIVE) Magnesium Level 2.2 MG/DL (1.5-2.5) Assessment and Plan Problem List: (1) Atrial flutter with rapid ventricular response (2) Syncope and collapse (3) Lung mass Assessment and Plan 1) Afib with RVR, now Controlled Rate, on Cardizem PO 60mg QID 2) Eliquis for anticoagulation 3) Physical therapy working with the patient 4) Will see PRN, call with questions Zach Juares DO Jul 25, 2016 08:52
[2016-07-25] MEDS: TAMSULOSIN HCL 0.4 MG CAP PO SCH ×2 (09:22→20:56)
[2016-07-25] MEDS: APIXABAN 5 MG TABLET PO SCH ×2 (09:23→20:56)
[2016-07-25] MEDS: FINASTERIDE 5 MG TAB PO SCH (09:23)
[2016-07-25] MEDS: PANTOPRAZOLE SOD 40 MG DELAYED RELEASE TAB PO SCH (09:23)
[2016-07-25] MEDS: CETIRIZINE HCL 10 MG TAB PO SCH (09:23)
[2016-07-25] MEDS: DIGOXIN 0.125 MG TAB PO SCH (09:23)
--- NOTE | 2016-07-25 16:18 | HHI.PR ---
Subjective Remarks No chest pain No SOB at rest. No dizziness No Headache Appetite good facial color pink (Rita Ross) Objective Objective Results - Vital Signs Date Time Temp Pulse Resp B/P Pulse Ox O2 Delivery O2 Flow Rate FiO2 07/25/16 14:00 66 07/25/16 12:00 68 07/25/16 12:00 97.5 68 23 98/61 97 07/25/16 10:00 84 07/25/16 08:00 116 07/25/16 08:00 97.5 116 16 118/84 92 07/25/16 06:00 114 07/25/16 04:00 81.0 81 22 134/65 94 07/25/16 04:00 80 07/25/16 02:00 81 07/25/16 00:00 67 07/25/16 00:00 97.8 106 20 119/68 92 07/24/16 22:00 68 07/24/16 20:00 69 07/24/16 20:00 97.6 69 23 101/62 96 07/24/16 18:00 69 I/O 07/24/16 07/24/16 07/24/16 07/25/16 07/25/16 07/25/16 07:00 15:00 23:00 07:00 15:00 23:00 Intake Total 900 ml 1300 ml 2213 ml 716 ml 1375 ml Output Total 250 ml 30 ml 0 ml 475 ml 600 ml Balance 650 ml 1270 ml 2213 ml 241 ml 775 ml Intake Oral 380 ml 458 ml 20 ml 360 ml IV Total 900 ml 920 ml 1755 ml 696 ml 1015 ml Output Urine Total 250 ml 30 ml 0 ml 475 ml 600 ml Stool Total 0 ml # Voids 1 1 0 2 # Bowel Movements 1 1 0 1 1 (Rita Ross) Result Diagram: 07/24/16 0410 07/24/16 0410 Medications and IVs Cardizem drip off 07/24/16 (Rita Ross) ROS General: Other (10 point review done. All systems negative or unremarkable) ( Rita Ross) Physical Exam Physical Exam Assessment and Plan GENERAL: This is a well-developed, slim male who appears to be in no acute distress. He is alert and awake, sitting up in bed. HEAD: Normocephalic without any lesion or mass noted. Facial features appear symmetric. OROPHARYNGEAL: Oropharynx without erythema or edema. NECK: Supple. No nuchal rigidity or lymphadenopathy. Trachea midline without deviation. CARDIAC: irregular rhythm, rate on the 60s with paced beats noted 70% of the time, S1 and S2 are heard. Murmur none; no gallops or rubs. LUNGS: Clear to auscultation bilaterally. No wheeze,rhonchi or rales noted.. No use of accessory muscles on inspiration or expiration. ABDOMEN: flat, Soft, nontender, no organomegaly or masses. Bowel sounds are heard in all four quadrants. No rebound. No guarding. EXTREMITIES: No pedal or central edema. Pulses equal bilateral. No cyanosis. NEUROLOGICAL: Patient mood and affect appropriate. No focal deficit except for [place] SKIN:Warm and moist, dry, facial color pink. Objective Remarks Im much better today. (Rita Ross) A/P Diagnosis: (1) Atrial flutter with rapid ventricular response (2) Syncope and collapse (3) Shortness of breath (4) Lung mass (5) Dizziness Plan: Cardizem drip D?Cd Blood pressure normal today, asymptomatic. Patient has vehicle monitor technician for observation of heart rate. Plan to start Cardizem 30mg PO every 6 hrs, Cardiology consult in place. HR 70s and 80s at est. Monitor vital signs which include blood pressure, fever, respiratory rate. DVT prophylaxis, patient is on Elaquis PUD prophylaxis with Protonix Monitor activities for safety precautions. D/C IVF. May be OOB. medications monitored for any needs. Monitor any signs of symptoms of chest pain, shortness of breath, or dizziness. Document in chart and call for any issues Patient is Full code, full aggressive care per his and requests. and daughter in room. D/W RN D/W patient, family D/W Dr. Trent Discharge Planning home with family Discussed With: Nurse, Family ( and daughter), Other (Dr. Trent, pt seen on his behalf) (Rita Ross) Assessment and Plan pt seen & Examined d./w PT d/w Rita cont current tx will f/u (Brenda Trent MD) Rita Ross Jul 25, 2016 16:18 Brenda Trent MD Jul 25, 2016 18:19
[2016-07-25] MEDS: ESCITALOPRAM OXALATE 10 MG TAB PO SCH (20:56)
[2016-07-26] VITALS (13 sets, daily range): BP systolic 109–152; BP diastolic 61–92; PULSE 68–128; RESP 16–25; TEMP 97.4–98.3; O2SAT 92–97
[2016-07-26] MEDS: DILTIAZEM HCL 60 MG TAB PO SCH ×2 (01:04→05:57)
[2016-07-26] MEDS: CHLORHEXIDINE GLUCONATE 2 % 1 PACK (2 CLOTHS)(taper/protocol) TOP SCH (04:00)
[2016-07-26] MEDS: SODIUM CHLOR 0.9% 1000 ML INJ 1,000 ML IV SCH (05:58)
[2016-07-26] MEDS: DIGOXIN 0.125 MG TAB PO SCH (09:25)
[2016-07-26] MEDS: CETIRIZINE HCL 10 MG TAB PO SCH (09:25)
[2016-07-26] MEDS: TAMSULOSIN HCL 0.4 MG CAP PO SCH ×2 (09:25→19:49)
[2016-07-26] MEDS: PANTOPRAZOLE SOD 40 MG DELAYED RELEASE TAB PO SCH (09:25)
[2016-07-26] MEDS: APIXABAN 5 MG TABLET PO SCH ×2 (09:26→19:48)
[2016-07-26] MEDS: FINASTERIDE 5 MG TAB PO SCH (09:26)
--- NOTE | 2016-07-26 10:06 | PD.CARD.PN ---
Subjective Subjective Remarks No chest pain, no shortness of breath, heart rate some what elevated today Objective Medications Current Medications Medications (Trade) Dose Ordered Sig/Omer Route Start Time Stop Time Status Last Admin (Eliquis) 5 mg BID PO 07/23/16 21:00 07/26/16 09:26 (ZyrTEC) 10 mg DAILY PO 07/24/16 09:00 07/26/16 09:25 (Lexapro) 10 mg HS PO 07/23/16 21:00 07/25/16 20:56 (Flomax) 0.4 mg BID PO 07/23/16 21:00 07/26/16 09:25 Finasteride 5 mg 5 mg DAILY PO 07/24/16 09:00 07/26/16 09:26 Diltiazem HCl 125 mg/Sodium Chloride 125 ml @ 0 mls/hr TITRATE IV 07/23/16 17:45 (NS 1000 ml Inj) 1,000 ml @ 100 mls/hr Q10H IV 07/23/16 18:15 07/26/16 05:58 (Protonix) 40 mg DAILY PO 07/24/16 09:00 07/26/16 09:25 Miscellaneous Information Patient in critical care unit? Ass... Q361D XX 07/23/16 21:00 07/23/16 21:00 (Chlorhexidine 2% Cloth) 3 pack DAILY@04 TOP 07/24/16 04:00 07/28/16 04:01 07/26/16 04:00 (Chlorhexidine 2% Cloth) 3 pack UNSCH PRN TOP 07/23/16 21:00 07/28/16 20:50 (Cardizem) 60 mg Q6HR PO 07/25/16 00:00 07/26/16 05:57 (Lanoxin) 0.125 mg DAILY PO 07/25/16 09:00 07/26/16 09:25 Vital Signs / I&O Vital Signs Date Time Temp Pulse Resp B/P Pulse Ox O2 Delivery O2 Flow Rate FiO2 07/26/16 08:00 97.4 125 19 136/84 95 07/26/16 08:00 125 07/26/16 06:00 127 07/26/16 04:00 97.6 117 16 135/87 95 07/26/16 04:00 117 07/26/16 02:00 110 07/26/16 00:00 97.8 102 21 152/92 94 07/26/16 00:00 102 07/25/16 22:00 93 07/25/16 20:00 97.8 67 21 126/67 96 07/25/16 20:00 67 07/25/16 18:00 84 07/25/16 16:00 97.8 82 21 113/69 96 07/25/16 16:00 82 07/25/16 14:00 66 07/25/16 12:00 68 07/25/16 12:00 97.5 68 23 98/61 97 I/O 07/25/16 07/25/16 07/25/16 07/26/16 07/26/16 07/26/16 07:00 15:00 23:00 07:00 15:00 23:00 Intake Total 716 ml 1375 ml 906 ml 854 ml Output Total 475 ml 600 ml 625 ml 1000 ml Balance 241 ml 775 ml 281 ml -146 ml Intake Oral 20 ml 360 ml 240 ml 100 ml IV Total 696 ml 1015 ml 666 ml 754 ml Output Urine Total 475 ml 600 ml 625 ml 1000 ml # Voids 2 2 # Bowel Movements 1 1 Physical Exam GENERAL: NAD SKIN: Warm and dry. HEAD: Atraumatic. Normocephalic. EYES: Pupils equal and round. No scleral icterus. No injection or drainage. ENT: No nasal bleeding or discharge. Mucous membranes pink and moist. NECK: Trachea midline. No JVD. CARDIOVASCULAR: Irregularly irregular RESPIRATORY: No accessory muscle use. Clear to auscultation. Breath sounds equal bilaterally. GASTROINTESTINAL: Abdomen soft, non-tender, nondistended. Hepatic and splenic margins not palpable. MUSCULOSKELETAL: Extremities without clubbing, cyanosis, or edema. No obvious deformities. NEUROLOGICAL: Awake and alert. No obvious cranial nerve deficits. Motor grossly within normal limits. Five out of 5 muscle strength in the arms and legs. Normal speech. PSYCHIATRIC: Appropriate mood and affect; insight and judgment normal. Assessment and Plan Problem List: (1) Atrial flutter with rapid ventricular response (2) Syncope and collapse (3) Lung mass Assessment and Plan 1) Afib with RVR, noticed heart rate was more elevated today, will add Lopressor 12.5 Q6, after dose found to help can combine to make less doses per day 2) Eliquis for anticoagulation 3) Physical therapy working with the patient Zach Juares DO Jul 26, 2016 10:06
[2016-07-26] MEDS ORDERED: METOPROLOL TARTRATE 25 MG TAB PO ONE (10:15)
[2016-07-26] MEDS ORDERED: PILL SPLITTER OTHER PRN (10:45)
--- NOTE | 2016-07-26 11:37 | HHI.PR ---
Subjective History of Present Illness HR still not well controlled mostly 100s to 120s BB was added to the regimen feels better denies CP breathing is ok NO cough or sputum No fever or chills No N/V appetite is better offers no other c/o Vitals/Results Intake & Output 07/25/16 07/25/16 07/26/16 15:00 23:00 07:00 Intake Total 1375 ml 906 ml 854 ml Output Total 600 ml 625 ml 1000 ml Balance 775 ml 281 ml -146 ml Intake Oral 360 ml 240 ml 100 ml IV Total 1015 ml 666 ml 754 ml Output Urine Total 600 ml 625 ml 1000 ml # Voids 2 2 # Bowel Movements 1 Vital Signs Vital Signs Date Time Temp Pulse Resp B/P Pulse Ox O2 Delivery O2 Flow Rate FiO2 07/26/16 10:00 128 07/26/16 08:00 97.4 125 19 136/84 95 07/26/16 08:00 125 07/26/16 06:00 127 07/26/16 04:00 97.6 117 16 135/87 95 07/26/16 04:00 117 07/26/16 02:00 110 07/26/16 00:00 97.8 102 21 152/92 94 07/26/16 00:00 102 07/25/16 22:00 93 07/25/16 20:00 97.8 67 21 126/67 96 07/25/16 20:00 67 07/25/16 18:00 84 07/25/16 16:00 97.8 82 21 113/69 96 07/25/16 16:00 82 07/25/16 14:00 66 07/25/16 12:00 68 07/25/16 12:00 97.5 68 23 98/61 97 CBC/BMP: 07/24/16 0410 07/24/16 0410 Physical Exam General General Appearance: No Acute Distress, Comfortable Eyes Eye Exam: Pupils Equal, Sclera White, Extraocular Movement Intact Ears & Nose Ears & Nose Exam: Nasal Mucosa [place] Throat Throat Exam: Oral Mucosa [place] & Moist Neck Neck Exam: Neck Supple, Trachea Midline Pulmonary Resp Exam: Clear Bilaterally, Breath Sounds Equal Cardiology CV Exam: Irregular, Tachycardia Gastrointestinal/Abdomen GI Exam: Soft, Non-Tender, Bowel Sounds Present Integumentary Skin Exam: Warm, Dry Extremeties Extremities Exam: No Edema, Pedal Pulses Palpable Neurologic Neuro Exam: Alert, Awake, Oriented, Speech Clear, Moving All Extremities Neuro Remarks hard of hearing Psychiatric Psych Exam: Appropriate Responses VTE Prophylaxis VTE Remarks apixaban PUD Prophylasis PUD Prophylaxis: Protonix Assessment/Plan Assessment/Plan A/P Diagnosis: (1) Atrial flutter with rapid ventricular response (2) Syncope and collapse (3) Hx PPP Shortness of breath (4) Lung mass (5) Hx BPH s/p TURP (6) CKD stage III (7) Hx Esophageal ca s/p esophagectomy (8) Hx R Hemicolectomy (9) Partial deafness Plan: Off Cardizem drip Lopressor 12.5 q6hr cont digoxin change cardizem to CD 240 mg qd monitor HR Blood pressure normal today, asymptomatic. cont Eliquis Flomax/ Proscar cont Lexapro PT eval & tx DVT prophylaxis, patient is on Elaquis PUD prophylaxis with Protonix ss for d/c planning am labs will f/u d/w PT d/w decal transferrer to step down unit Brenda Trent MD Jul 26, 2016 11:37
[2016-07-26] MEDS: DILTIAZEM-CD 240 MG CAP ER PO SCH (14:36)
[2016-07-26] MEDS: METOPROLOL TARTRATE 25 MG TAB PO SCH ×2 (17:11→21:39)
[2016-07-26] MEDS: ESCITALOPRAM OXALATE 10 MG TAB PO SCH (19:49)
[2016-07-27] VITALS: BP 110/62; PULSE 101; RESP 18; TEMP 97.4; O2SAT 97
[2016-07-27 04:00] VITALS: BP 118/65; PULSE 100; RESP 18; TEMP 97.8; O2SAT 94
[2016-07-27] MEDS: CHLORHEXIDINE GLUCONATE 2 % 1 PACK (2 CLOTHS)(taper/protocol) TOP SCH (04:00)
[2016-07-27] MEDS: METOPROLOL TARTRATE 25 MG TAB PO SCH ×2 (04:57→08:34)
[2016-07-27 08:00] VITALS: BP 124/65; PULSE 76; RESP 16; TEMP 97.7; O2SAT 95
[2016-07-27 08:08] LABS: MEAN CELL VOLUME 89.7 FL (80.0-100.0); MEAN CORPUSCULAR HEMOGLOBIN 29.4 PG (27.0-34.0); MEAN CORPUSCULAR HGB CONC 32.8 % (32.0-36.0); PLATELET COUNT 140 TH/MM3 (150-450); RED BLOOD COUNT 4.23 MIL/MM3 (4.50-5.90); RED CELL DISTRIBUTION WIDTH 13.3 % (11.6-17.2); REVIEW FLAG FINAL; WHITE BLOOD COUNT 4.9 TH/MM3 (4.0-11.0)
[2016-07-27] MEDS: PANTOPRAZOLE SOD 40 MG DELAYED RELEASE TAB PO SCH (08:33)
[2016-07-27] MEDS: DILTIAZEM-CD 240 MG CAP ER PO SCH (08:33)
[2016-07-27] MEDS: TAMSULOSIN HCL 0.4 MG CAP PO SCH (08:33)
[2016-07-27] MEDS: APIXABAN 5 MG TABLET PO SCH (08:33)
[2016-07-27] MEDS: DIGOXIN 0.125 MG TAB PO SCH (08:33)
[2016-07-27] MEDS: FINASTERIDE 5 MG TAB PO SCH (08:33)
[2016-07-27] MEDS: CETIRIZINE HCL 10 MG TAB PO SCH (08:34)
[2016-07-27 08:59] LABS: BICARBONATE 24.2 MEQ/L (21.0-32.0); POTASSIUM 4.4 MEQ/L (3.5-5.1)
--- NOTE | 2016-07-27 10:07 | HHI.PR ---
Subjective History of Present Illness feels much better HR is better controlled denies CP breathing is ok NO cough or sputum No fever or chills No N/V appetite is better ambulating in the room Independently eager to go home offers no other c/o Vitals/Results Intake & Output 07/26/16 07/26/16 07/27/16 14:59 22:59 06:59 Intake Total 803 ml 440 ml 0 ml Output Total 850 ml 0 ml Balance -47 ml 440 ml 0 ml Intake Oral 240 ml 440 ml 0 ml IV Total 563 ml 0 ml Output Urine Total 850 ml 0 ml # Voids 3 2 # Bowel Movements 1 0 0 Vital Signs Vital Signs Date Time Temp Pulse Resp B/P Pulse Ox O2 Delivery O2 Flow Rate FiO2 07/27/16 08:00 97.7 76 16 124/65 95 07/27/16 04:00 97.8 100 18 118/65 94 07/27/16 00:15 Room Air 07/27/16 00:00 97.4 101 18 110/62 97 07/26/16 23:27 76 07/26/16 22:00 69 07/26/16 20:00 98.3 69 20 109/65 97 07/26/16 20:00 69 07/26/16 18:00 116 07/26/16 16:00 97.4 69 25 109/70 94 07/26/16 16:00 68 07/26/16 14:00 68 07/26/16 12:00 68 07/26/16 12:00 97.6 68 20 116/61 92 CBC/BMP: 07/27/16 0640 07/27/16 0640 Lab Results Laboratory Tests Test 07/27/16 06:40 White Blood Count 4.9 TH/MM3 Red Blood Count 4.23 MIL/MM3 Hemoglobin 12.5 GM/DL Hematocrit 38.0 % Mean Corpuscular Volume 89.7 FL Mean Corpuscular Hemoglobin 29.4 PG Mean Corpuscular Hemoglobin 32.8 % Concent Red Cell Distribution Width 13.3 % Platelet Count 140 TH/MM3 Mean Platelet Volume 9.7 FL Sodium Level 143 MEQ/L Potassium Level 4.4 MEQ/L Chloride Level 111 MEQ/L Carbon Dioxide Level 24.2 MEQ/L Anion Gap 8 MEQ/L Blood Urea Nitrogen 15 MG/DL Creatinine 1.37 MG/DL Estimat Glomerular Filtration 50 ML/MIN Rate Random Glucose 86 MG/DL Calcium Level 8.4 MG/DL Physical Exam General General Appearance: No Acute Distress, Comfortable Eyes Eye Exam: Pupils Equal, Sclera White, Extraocular Movement Intact Ears & Nose Ears & Nose Exam: Nasal Mucosa [place] Throat Throat Exam: Oral Mucosa [place] & Moist Neck Neck Exam: Neck Supple, Trachea Midline Pulmonary Resp Exam: Clear Bilaterally, Breath Sounds Equal Cardiology CV Exam: Irregular, Pacemaker Gastrointestinal/Abdomen GI Exam: Soft, Non-Tender, Bowel Sounds Present Integumentary Skin Exam: Warm, Dry Extremeties Extremities Exam: No Edema, Pedal Pulses Palpable Neurologic Neuro Exam: Alert, Awake, Oriented, Speech Clear, Moving All Extremities Neuro Remarks hard of hearing Psychiatric Psych Exam: Appropriate Responses VTE Prophylaxis VTE Remarks apixaban PUD Prophylasis PUD Prophylaxis: Protonix Assessment/Plan Assessment/Plan A/P Diagnosis: (1) Atrial flutter with rapid ventricular response (2) s/p Syncope (3) Hx PPP Shortness of breath (4) Lung mass, small loculated pleural effusion (5) Hx BPH s/p TURP (6) CKD stage III (7) Hx Esophageal ca s/p esophagectomy (8) Hx R Hemicolectomy (9) Partial deafness Plan: cont digoxin cardizem to CD 240 mg qd change Lopressor 25 bid cont Eliquis Bun/cr stable cont Flomax/ Proscar cont Lexapro PT eval & tx DVT prophylaxis, patient is on Elaquis PUD prophylaxis with Protonix medically stable for d/c d/c home today see MRS see HRS f/u pcp f/u card d/w PT Brenda Trent MD Jul 27, 2016 10:07
[2016-07-27] MEDS ORDERED: DIGO0.12 PO (10:25)
[2016-07-27] MEDS ORDERED: CARD240C6 PO (10:25)
[2016-07-27 12:00] VITALS: BP 95/54; PULSE 76; RESP 20; TEMP 97.8; O2SAT 96
[2016-07-27] MEDS ORDERED: METOPROLOL TARTRATE 25 MG TAB PO SCH (22:00)
--- NOTE | 2016-08-27 18:13 | HHI.DS ---
Discharge Summary Admission Date Jul 23, 2016 at 17:23 Discharge Date: Jul 27, 2016 Admitting Diagnosis atrial flutter with RVR (1) Atrial flutter with rapid ventricular response (2) Syncope and collapse (3) Shortness of breath (4) Dizziness (5) Loculated pleural effusion Imaging Last Impressions Chest X-Ray 07/23/16 1423 Signed Impressions: Service Date/Time: July 14:28 - CONCLUSION: 1. Interval development of a 3.7 x 2.2 cm soft tissue density laterally in the right perihilar distribution. Findings are nonspecific and could represent a mass lesion or fluid in the fissure. CT of the chest could be performed for further characterization. 2. Interval development of some pleural thickening laterally in the right base and some diaphragmatic calcifications also in the right hemithorax. Cong Pressley MD Chest CT 07/23/16 0000 Signed Impressions: Service Date/Time: July 20:19 - CONCLUSION: 1. Small right and tiny left pleural effusions. Much of the right pleural effusion is loculated in the major fissure which accounts for the opacity on today's chest x-ray. No concerning mass is demonstrated. 2. Shotty mediastinal adenopathy, nonspecific but most likely benign. 3. Previous esophagectomy with gastric pullup without evidence of an acute complication or recurrence. 4. Coronary artery calcification. 5. Tiny stones partly seen of both kidneys and a left renal cyst. Home Alanis MD Hospital Course This is an 85-year-old white male who came into the emergency room from his cardiology office with an abnormal EKG. The past 3 weeks patient has had symptoms of shortness of breath and weakness especially with activity or exertion. Patient denied any chest pain, but does have bouts of dizziness off and on. Patient currently has a pacemaker and has had episodes of atrial fib in the past. He also had his pacemaker checked which showed atrial flutter heart rate in the 120s. He was told to come to the emergency room for further evaluation. Patient denied any fever, no cough, no chest pain, no constipation. He did have bouts of diarrhea which appeared to be chronic according to his . Most of the patient's history was given per the and daughter due to the patient's hard of hearing. Pt. was admitted for: (1) Atrial flutter with rapid ventricular response (2) s/p Syncope (3) Hx PPP Shortness of breath (4) Lung mass, small loculated pleural effusion (5) Hx BPH s/p TURP (6) CKD stage III (7) Hx Esophageal ca s/p esophagectomy (8) Hx R Hemicolectomy (9) Partial deafness During the course of the hospitalization, the following took place: Pt. admitted, cardiology consulted Initially put on Cardizem drip, then changed to Cardizem PO Continued on Eliquis Lopressor was added later as HR was elevated. Some home meds were continued. Bun/cr stable CXR initially showed questionable mass, CT chest done. No mass noted, small loculated pleural effusion that was stable. No further work up continued Flomax/ Proscar continued Lexapro PT eval & tx, ambulated with assist DVT prophylaxis, patient is on Eliquis PUD prophylaxis with Protonix Pt. improved, cleared by cardiology. medically stable for d/c Discharged home with Rx as noted Pt Condition on Discharge: Stable Discharge Disposition: Discharge Home Discharge Instructions DIET: Follow Instructions for: Heart Healthy Diet Fluid Restrictions: none Activities you can perform: Regular-No Restrictions Other Activity Instructions: fall precautions Follow up Referrals: Cardiology - 3 Weeks PCP Follow-up - 1 Week New Medications: Digoxin (Digoxin) 0.125 Mg Tab 0.125 MG PO DAILY a fib #30 TAB Diltiazem CD 24 HR (Cardizem CD 24 HR) 240 Mg Caper 240 MG PO DAILY a fib #30 CAP Continued Medications: Apixaban (Eliquis) 5 Mg Tab 5 MG PO BID Blood Clot Prevention #60 Ref 0 TAB Cetirizine (Zyrtec Allergy) 10 Mg Tab 10 MG PO DAILY TAB Dutasteride (Dutasteride) 0.5 Mg Cap 0.5 MG PO DAILY Manage Prostate Problems #30 Ref 0 CAP Escitalopram (Lexapro) 10 Mg Tab 10 MG PO HS #30 Ref 0 TAB Metoprolol Tartrate (Metoprolol Tartrate) 25 Mg Tab 25 MG PO BID #60 Ref 0 TAB Omeprazole (Omeprazole) 40 Mg Cap 40 MG PO DAILY #30 Ref 0 CAP Tamsulosin (Tamsulosin) 0.4 Mg Cap 0.4 MG PO BID Manage Prostate Problems #30 Ref 0 CAP Jessica Knapp Aug 27, 2016 18:13
== END 2016-07-27 13:55 | disposition home or self-care (01) | DRG 310 ==
LOC: NEPE 14:07 → NEDA 17:23 → HIME 19:50 → N04A 07-26 23:00
PROVIDERS: ADMIT Specialist; ATTEND Specialist
DX: I48.92 Unspecified atrial flutter (principal); N18.3 Chronic kidney disease, stage 3 (moderate); I12.9 Hypertensive chronic kidney disease with stage 1 through stage 4 chronic kidney disease, or unspecified chronic kidney disease; R55 Syncope and collapse; R42 Dizziness and giddiness; R06.02 Shortness of breath; R91.8 Other nonspecific abnormal finding of lung field; Z95.0 Presence of cardiac pacemaker; H91.90 Unspecified hearing loss, unspecified ear; Z85.01 Personal history of malignant neoplasm of esophagus; Z85.038 Personal history of other malignant neoplasm of large intestine; Z87.891 Personal history of nicotine dependence; Z79.02 Long term (current) use of antithrombotics/antiplatelets; I48.91 Unspecified atrial fibrillation
CPT/HCPCS: 71010; 71250; 80048; 82550; 83735; 84484; 85025; 85027; 85610; 85730; 87641; 93005; 96374; J7030